=== PATIENT | male | born 1950 | race Caucasian/White ===

== ENCOUNTER 2019-04-25 13:12 | Observation (INO) | payer MEDICARE, OTHER ==
[~2019-04-25] VITALS: Ht 167.6 cm; Wt 88.0 kg
[2019-04-25] MEDS ORDERED: SODIUM CHLORIDE 0.9% 1000ML 1,000 ML IV STA (13:15)
[2019-04-25 13:31] LABS: BASOPHILS # (AUTO) 0.1 (0.0-0.1); BASOPHILS % 0.5 % (0.0-1.0); EOSINOPHILS % 0.3 % (0.0-6.0); HEMATOCRIT 41.7 % (38.2-49.6); HEMOGLOBIN 14.2 g/dL (14.0-18.0); LYMPHOCYTES # (AUTO) 1.9 (1.0-3.2); LYMPHOCYTES % 19.3 % (18.0-39.1); MEAN CORPUSCULAR HEMOGLOBIN 29.8 pg (28-32); MEAN CORPUSCULAR HGB CONC 34.1 g/dL (31-35); MEAN CORPUSCULAR VOLUME 87.6 fL (81-99); MONOCYTES # (AUTO) 0.6 (0.2-0.8); MONOCYTES % 5.5 % (4.4-11.3); NEUTROPHILS # (AUTO) 7.4 (2.1-6.9); NEUTROPHILS % 74.2 % (38.7-80.0); PLATELET COUNT 189 x10e3/uL (140-360); RED BLOOD COUNT 4.76 x10e6/uL (4.3-5.7); RED CELL DISTRIBUTION WIDTH 11.9 % (11.7-14.4)
[2019-04-25 13:55] LABS: ALANINE AMINOTRANSFERASE 23 IU/L (0-55); ALBUMIN/GLOBULIN RATIO 1.1 (0.8-2.0); ALKALINE PHOSPHATASE 79 IU/L (40-150); ANION GAP 13.7 mmol/L (8-16); BLOOD UREA NITROGEN 20 mg/dL (7-26); BUN/CREATININE RATIO 17 (6-25); CARBON DIOXIDE 26 mmol/L (22-29); CHLORIDE 103 mmol/L (98-107); CREATINE KINASE 106 IU/L (30-200); CREATININE, SERUM 1.16 mg/dL (0.72-1.25); EST GLOMERULAR FILTRATION RATE > 60 ML/MIN (60-); GLUCOSE 103 mg/dL (74-118); POTASSIUM 3.7 mmol/L (3.5-5.1); SODIUM 139 mmol/L (136-145)
--- NOTE | 2019-04-25 14:02 | Diagnostic Imaging Report ---
CT BRAIN WO HISTORY: 68-year-old male with altered mental status COMPARISON: None. TECHNIQUE: Noncontrast axial scans were obtained from skull base to the vertex. Coronal and sagittal reconstructions obtained from the axial data. One or more of the following dose reduction techniques were used: Automated exposure control, adjustment of the mA and/or kV according to patient size, and/or utilization of iterative reconstruction technique. DISCUSSION: Scalp/Skull: Unremarkable. Brain sulci: Appropriate for patient's age. Ventricles: Mild asymmetry of ventricular size with larger size of the right lateral ventricle compared to the left. No hydrocephalus. Extra-axial spaces: No masses or fluid collections. Parenchyma: A few punctate hypodense foci in the deep and periventricular white matter consistent with chronic microvascular ischemic changes. No mass, hemorrhage, or large vascular territory acute infarct. Dural sinuses: No abnormal densities. Sellar/Suprasellar region: Intact. Skull base: Intact. Incidental findings: Mild mucosal thickening of the right maxillary sinus. IMPRESSION: 1. No acute intracranial abnormalities. 2. Minimal age appropriate chronic small vessel ischemic changes. This preliminary report was issued by Dr. Miles Banks M.D. neuroradiology fellow at 1401 hours on 04/25/2019. The images and preliminary report provided by the neuroradiology fellow were reviewed and a final report issued by Dr. Estevez neuroradiology faculty on 04/17/2019 at 4:01 PM. Signed by: Dr. Jessica Navarro M.D. on 04/25/2019 4:01 PM
[2019-04-25 14:42] LABS: BILIRUBIN,URINE NEGATIVE (NEGATIVE); CLARITY,URINE SL CLOUDY (CLEAR); COLOR,URINE YELLOW (YELLOW); KETONES,URINE TRACE (NEGATIVE); LEUKOCYTE ESTERASE ,URINE NEGATIVE (NEGATIVE); NITRITE,URINE NEGATIVE (NEGATIVE); PROTEIN,URINE DIPSTICK TRACE (NEGATIVE); URINE UROBILINOGEN 0.2 mg/dL (0.2 - 1)
[2019-04-25 14:49] LABS: BACTERIA,URINE FEW /HPF; EPITHELIAL CELLS,URINE FEW /LPF; RBC,URINE 0-5 /HPF (0-5); WBC,URINE (MAN) 0-5 /HPF (0-5)
--- NOTE | 2019-04-25 15:12 | Diagnostic Imaging Report ---
EXAMINATION: CHEST SINGLE (PORTABLE) INDICATION: Altered mental status, pain COMPARISON: Chest radiograph 10/19/2010 FINDINGS: AP view TUBES and LINES: None. LUNGS: Left basilar hazy airspace opacity.. Lung volumes are adequate. PLEURA: No pleural effusion or pneumothorax. HEART AND MEDIASTINUM: The cardiomediastinal silhouette is unremarkable. Aortic arch calcifications. BONES AND SOFT TISSUES: No acute osseous lesion. Soft tissues are unremarkable. Mild degenerative changes in spine. UPPER ABDOMEN: No free air under the diaphragm. IMPRESSION: Left basilar airspace opacity likely atelectasis. Signed by: Kevin Salter DO on 04/25/2019 3:08 PM
[2019-04-25] MEDS ORDERED: TRAZODONE HCL50 MG PO (15:13)
[2019-04-25] MEDS: MORPHINE SULFATE INJ 4 MG/ML INJ 1ML IV PRN (15:14)
[2019-04-25] MEDS ORDERED: PANTOPRAZOLE SO40 MG PO (15:14)
[2019-04-25] MEDS ORDERED: ROBAXIN-750750 MG PO (15:15)
[2019-04-25] MEDS ORDERED: HYDROCODON-ACE1 EAC9 PO (15:15)
[2019-04-25] MEDS ORDERED: ISOSORBIDE MONO20 MG PO (15:16)
[2019-04-25] MEDS ORDERED: ATORVASTATIN CA20 MG PO (15:16)
[2019-04-25] MEDS ORDERED: DILTIAZEM HCL30 MG PO (15:17)
[2019-04-25] MEDS ORDERED: CYMBALTA20 MG PO (15:17)
[2019-04-25 15:18] LABS: AMPHETAMINES SCREEN,URINE NEGATIVE (NEGATIVE); BENZODIAZEPINES SCREEN,URINE NEGATIVE (NEGATIVE); PHENCYCLIDINE SCREEN,URINE NEGATIVE (NEGATIVE)
[2019-04-25] MEDS ORDERED: BACLOFEN10 MG PO (15:18)
[2019-04-25] MEDS ORDERED: ONDANSETRON HCL INJ 2MG/ML 2ML 2 MG/ML VIAL IV PRN (15:30)
--- OUTSIDE RECORDS SUMMARY | 2019-04-25 15:42 | XMS REPORT ---
Author Author [facility] Address Unknown Phone Unavailable Care Team Providers Care Internal Corrosion Specialist Name Role Phone ТАТЬЯНА ARTURO Unavailable Unavailable Problems This patient has no known problems. Allergies, Adverse Reactions, Alerts This patient has no known allergies or adverse reactions. Medications This patient has no known medications. Results Test Description Test Time Test Comments Text Results Atomic Results Result Comments CHEST SINGLE (PORTABLE) 2019-04-25 15:07:00 [place] [id number] Patient Name: JOVON DUEÑAS MR #: [id number] : 1950 Age/Sex: 68/M Req #: [id number] Adm Physician: Ordered by: ARTURO VAZ DO Report #: [id number] Location: ER Room/Bed: Procedure: [id number] DX/CHEST SINGLE (PORTABLE) Exam Date: 04/25/19 Exam Time: 1345 REPORT STATUS: Signed EXAMINATION: CHEST SINGLE (PORTABLE) INDICAT ION: Altered mental status, pain COMPARISON: Chest radiograph 10/19/2010 FINDINGS: AP view TUBES and LINES: None. LUNGS: Left basilar hazy airspace opacity.. Lung volumes are adequate. PLEURA: No pleural effusion or pneumothorax. HEART AND MEDIASTINUM: The cardiomediastinal silhouette is unremarkable. Aortic arch calcifications. BONES AND SOFT TISSUES: No acute osseous lesion. Soft tissues are unremarkable. Mild degenerative changes in spine. UPPER ABDOMEN: No free air under the diaphragm. IMPRESSION: Left basilar airspace opa city likely atelectasis. Signed by: Kevin Salter DO on 04/25/2019 3:08 PM Dictated By: KEVIN SALTER DO 1508 Transcribed By: VIELKA on 04/25/19 1508 COPY TO: ARTURO VAZ DO
[2019-04-25] MEDS: SODIUM CHLORIDE 0.9% 1000ML 1,000 ML IV SCH ×2 (19:30→23:26)
[2019-04-25 20:00] VITALS: BP 180/95
--- NOTE | 2019-04-25 20:51 | NUR ---
CALLED AND LEFT VOICEMAIL TO DR SILVA FOR CONSULT OF AMS.
[2019-04-25 21:00] VITALS: BP 180/95
[2019-04-25] MEDS ORDERED: ACETAMINOPHEN 325 MG TAB PO PRN (21:30)
--- NOTE | 2019-04-25 21:40 | NUR ---
NOTIFIED DR COVARRUBIAS ABOUT HIGH BLOOD PRESSURE. NEW ORDER RECEIVED.
[2019-04-25] MEDS: DILTIAZEM HCL 30 MG TAB PO SCH (22:11)
[2019-04-26] VITALS (12 sets, daily range): BP systolic 121–209; BP diastolic 63–100
[2019-04-26] MEDS: MORPHINE SULFATE INJ 4 MG/ML INJ 1ML IV PRN ×5 (07:15→23:04)
[2019-04-26] MEDS: DILTIAZEM HCL 30 MG TAB PO SCH (07:15)
--- NOTE | 2019-04-26 11:15 | NUR ---
BP 200/90. C/o right hip pain 10/10. PRN morphine given. Will continue to monitor.
--- NOTE | 2019-04-26 11:28 | NUR ---
Paged to notify of BP 192/82. Awaiting for call back
--- NOTE | 2019-04-26 12:31 | NUR ---
aware of BP 178/85. States "I will look at the chart"
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
[2019-04-26] MEDS ORDERED: BACLOFEN 10 MG TAB PO PRN (12:45)
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
[2019-04-26] MEDS: ISOSORBIDE MONONITRATE 30 MG TAB CR PO SCH (13:16)
[2019-04-26] MEDS: NIFEDIPINE CR 30 MG TAB PO SCH ×2 (13:30→21:10)
[2019-04-26] MEDS ORDERED: HYDRALAZINE HCL 20 MG/ML VIAL IV STA (13:56)
[2019-04-26] MEDS ORDERED: HYDRALAZINE HCL 20 MG/ML VIAL IV SCH (14:00)
--- NOTE | 2019-04-26 14:00 | NUR ---
Notified of patient's BP. See orders
[2019-04-26 14:36] LABS: CHOL/HDL RATIO 4.9 (3.9-4.7)
[2019-04-26] MEDS ORDERED: HYDRALAZINE HCL 20 MG/ML VIAL IV PRN (14:45)
[2019-04-26] MEDS ORDERED: METHOCARBAMOL 750 MG TAB PO SCH (15:00)
[2019-04-26] MEDS: PANTOPRAZOLE SOD 40 MG TABEC PO SCH (16:32)
[2019-04-26] MEDS: METHOCARBAMOL 500 MG TAB PO SCH ×2 (17:05→21:10)
--- NOTE | 2019-04-26 18:55 | NUR ---
Report given to oncoming nurse of patient's status. Resting in bed, side rails upx2, call light within reach. No s/s of acute distress noted.
[2019-04-26] MEDS ORDERED: TRAZODONE HCL 50 MG TAB PO SCH (21:00)
[2019-04-26] MEDS ORDERED: ATORVASTATIN 40 MG TAB PO SCH (21:00)
[2019-04-26] MEDS ORDERED: ATORVASTATIN 20 MG TAB PO SCH (21:00)
[2019-04-26] MEDS: SALINE 0.65% NAS SOLN 1 SPRAY BTL SCH (21:09)
[2019-04-27] VITALS: BP 135/68
[2019-04-27 04:00] VITALS: BP 112/58
[2019-04-27] MEDS: MORPHINE SULFATE INJ 4 MG/ML INJ 1ML IV PRN ×2 (04:00→09:46)
--- NOTE | 2019-04-27 07:09 | NUR ---
Received bedside report from night nurse. Patient resting in bed, no signs of distress at this time. All safety measures in place. Will continue to monitor.
[2019-04-27] MEDS ORDERED: NIFEDIPINE ER30 M1 PO (07:21)
[2019-04-27] MEDS ORDERED: CARDIZEM30 MG PO (07:21)
--- NOTE | 2019-04-27 07:22 | NUR ---
D/C summary Principal Dx: Hypertensive encephalopathy 'BHAVANI/AMS Secondary Dx: GERD HTN HLD PLAN COntrol BP; UA negative; CT brain negative restart home meds adjust meds SCD DIspo d/c home f/u 1 week stable d/c>35mins Aron Emerson MD, PhD.
[2019-04-27 08:00] VITALS: BP 113/61
[2019-04-27] MEDS: METHOCARBAMOL 500 MG TAB PO SCH (08:59)
[2019-04-27] MEDS: NIFEDIPINE CR 30 MG TAB PO SCH (08:59)
[2019-04-27] MEDS: ISOSORBIDE MONONITRATE 30 MG TAB CR PO SCH (08:59)
[2019-04-27] MEDS: PANTOPRAZOLE SOD 40 MG TABEC PO SCH (08:59)
[2019-04-27] MEDS ORDERED: ISOSORBIDE MONONITRATE 20 MG TAB PO SCH (09:00)
[2019-04-27] MEDS ORDERED: DILTIAZEM HCL 30 MG TAB PO SCH (09:00)
[2019-04-27 09:45] VITALS: BP 113/61
[2019-04-27] MEDS: SALINE 0.65% NAS SOLN 1 SPRAY BTL SCH (09:49)
[2019-04-27] MEDS ORDERED: ONDANSETRON HCL 4 MG ORAL DISINTEGRATING TAB PO PRN (11:00)
[2019-04-27 12:00] VITALS: BP 85/55
== END 2019-04-27 11:30 | disposition home or self-care (01) ==
LOC: ER 13:12 → ERHOLD 15:26 → MED/SURG2 18:32
PROVIDERS: ADMIT Internal Medicine; ATTEND Internal Medicine
DX: I67.4 Hypertensive encephalopathy (principal); T42.8X1A Poisoning by antiparkinsonism drugs and other central muscle-tone depressants, accidental (unintentional), initial encounter; T40.2X1A Poisoning by other opioids, accidental (unintentional), initial encounter; G92 Toxic encephalopathy; S76.911A Strain of unspecified muscles, fascia and tendons at thigh level, right thigh, initial encounter; Z88.0 Allergy status to penicillin; R47.1 Dysarthria and anarthria; Y92.019 Unspecified place in single-family (private) house as the place of occurrence of the external cause; G89.4 Chronic pain syndrome; K21.9 Gastro-esophageal reflux disease without esophagitis; I10 Essential (primary) hypertension; E78.5 Hyperlipidemia, unspecified; I25.10 Atherosclerotic heart disease of native coronary artery without angina pectoris; Z95.5 Presence of coronary angioplasty implant and graft
CPT/HCPCS: 36415 ×2; 70450; 71045; 80053; 80061; 80307; 80320; 81001; 82550; 82553; 82948; 83036; 83880; 84484; 85025; 93005; 99284; G0378 ×3; J0360; J2270 ×3; J2405; J7030; S0164 ×2

== ENCOUNTER 2019-05-02 11:31 | Emergency (ER) | payer OTHER ==
[~2019-05-02] VITALS: Ht 167.6 cm; Wt 88.0 kg
[~2019-05-02 11:31] MED LIST: ATORVASTATIN CA20 MG PO; BACLOFEN10 MG PO; CARDIZEM30 MG PO; CYMBALTA20 MG PO; DILTIAZEM HCL30 MG PO; HYDROCODON-ACE1 EAC9 PO; ISOSORBIDE MONO20 MG PO; NIFEDIPINE ER30 M1 PO; PANTOPRAZOLE SO40 MG PO; ROBAXIN-750750 MG PO; TRAZODONE HCL50 MG PO
--- NOTE | 2019-05-02 12:04 | NUR ---
BLADDER SCAN DONE, 32ML URINE NOTED IN BLADDER
[2019-05-02 12:12] LABS: BASOPHILS # (AUTO) 0.1 (0.0-0.1); BASOPHILS % 0.9 % (0.0-1.0); EOSINOPHILS # (AUTO) 0.1 (0.0-0.4); EOSINOPHILS % 0.8 % (0.0-6.0); HEMATOCRIT 45.7 % (38.2-49.6); HEMOGLOBIN 15.8 g/dL (14.0-18.0); LYMPHOCYTES % 19.8 % (18.0-39.1); MEAN CORPUSCULAR HEMOGLOBIN 29.4 pg (28-32); MEAN CORPUSCULAR HGB CONC 34.6 g/dL (31-35); MEAN CORPUSCULAR VOLUME 85.1 fL (81-99); MONOCYTES # (AUTO) 0.6 (0.2-0.8); MONOCYTES % 6.3 % (4.4-11.3); NEUTROPHILS # (AUTO) 7.1 (2.1-6.9); PLATELET COUNT 231 x10e3/uL (140-360); RED BLOOD COUNT 5.37 x10e6/uL (4.3-5.7); RED CELL DISTRIBUTION WIDTH 11.7 % (11.7-14.4)
[2019-05-02 12:16] LABS: INR 0.88; PROTHROMBIN TIME 12.4 seconds (11.9-14.5)
[2019-05-02 12:17] LABS: PARTIAL THROMBOPLASTIN TIME 30.1 seconds (23.8-35.5)
[2019-05-02 12:25] LABS: ALBUMIN 4.3 g/dL (3.5-5.0); ALBUMIN/GLOBULIN RATIO 1.1 (0.8-2.0); ANION GAP 16.5 mmol/L (8-16); CALCIUM 10.7 mg/dL (8.4-10.2); CREATININE, SERUM 1.29 mg/dL (0.72-1.25); POTASSIUM 3.5 mmol/L (3.5-5.1)
[2019-05-02] MEDS ORDERED: ASPIRIN 81 MG CHEW TAB PO ONE (12:30)
--- NOTE | 2019-05-02 12:37 | Diagnostic Imaging Report ---
EXAMINATION: CHEST SINGLE (PORTABLE) INDICATION: ^ERMD ORDER ^[id number] ^1215 ^Y COMPARISON: Chest radiograph 04/25/2019 FINDINGS: AP view TUBES and LINES: None. LUNGS: Lungs are well inflated. Mild bilateral central pulmonary vascular congestion. No new consolidations. PLEURA: No pleural effusion or pneumothorax. HEART AND MEDIASTINUM: The cardiomediastinal silhouette is unremarkable.. BONES AND SOFT TISSUES: No acute osseous lesion. Soft tissues are unremarkable. UPPER ABDOMEN: No free air under the diaphragm. IMPRESSION: Mild central pulmonary vascular congestion. Signed by: Dr. Becca Bazan M.D. on 05/02/2019 12:34 PM
[2019-05-02] MEDS ORDERED: SODIUM CHLORIDE 0.9% 500ML 500 ML ONE (12:39)
[2019-05-02 12:45] LABS: CREATINE KINASE MB 1.9 ng/mL (0-5.0); THYROID STIMULATING HORMONE 1.613 uIU/mL (0.350-4.940)
[2019-05-02] MEDS ORDERED: SODIUM CHLORIDE 0.9% 500ML 500 ML IV STA (12:46)
--- NOTE | 2019-05-02 13:11 | Diagnostic Imaging Report ---
History:Confusion last night Comparison studies:CT head 04/25/2019 Technique: Axial images were obtained from the skull base to the vertex. Coronal and sagittal images reconstructed from the axial data. Intravenous contrast: None Dose modulation, iterative reconstruction, and/or weight based adjustment of the mA/kV was utilized to reduce the radiation dose to as low as reasonably achievable. Findings: Scalp/skull: No abnormalities. Extra-axial spaces: No masses. No fluid collections. Brain sulci: Age-appropriate. Ventricles: Asymmetric prominence of the right lateral ventricle. No hydrocephalus. Parenchyma: Subtle hypodensities in the supratentorial white matter are small vessel ischemic changes. No masses, hemorrhage, acute or chronic cortical vascular insults. Sellar/suprasellar region: No abnormalities. Craniocervical junction: Patent foramen magnum. No Chiari one malformation. Incidental findings: Atherosclerotic calcifications in the carotid siphons . Impression: No acute abnormalities. Stable exam. Chronic findings. 1. Mild supratentorial white matter small vessel ischemic changes. Signed by: DR Kranthi Feng M.D. on 05/02/2019 1:08 PM
[2019-05-02] MEDS ORDERED: ONDANSETRON HCL INJ 2MG/ML 2ML 2 MG/ML VIAL IV STA (13:32)
[2019-05-02] MEDS ORDERED: MORPHINE SULFATE INJ 4 MG/ML INJ 1ML IV STA (13:32)
[2019-05-02] MEDS ORDERED: MORPHINE SULFATE 2 MG/ML SYR 1ML ONE (13:44)
[2019-05-02 13:50] LABS: BILIRUBIN,URINE NEGATIVE (NEGATIVE); CLARITY,URINE CLEAR (CLEAR); COLOR,URINE YELLOW (YELLOW); KETONES,URINE NEGATIVE (NEGATIVE); LEUKOCYTE ESTERASE ,URINE NEGATIVE (NEGATIVE); NITRITE,URINE NEGATIVE (NEGATIVE); PROTEIN,URINE DIPSTICK TRACE (NEGATIVE); URINE UROBILINOGEN 0.2 mg/dL (0.2 - 1)
[2019-05-02] MEDS ORDERED: MORPHINE SULFATE INJ 4 MG/ML INJ 1ML IV NR (14:00)
[2019-05-02 14:04] LABS: AMPHETAMINES SCREEN,URINE NEGATIVE (NEGATIVE); PHENCYCLIDINE SCREEN,URINE NEGATIVE (NEGATIVE)
[2019-05-02 14:05] LABS: BENZODIAZEPINES SCREEN,URINE NEGATIVE (NEGATIVE)
[2019-05-02 14:06] LABS: RBC,URINE 0-5 /HPF (0-5); WBC,URINE (MAN) 0-5 /HPF (0-5)
[2019-05-02] MEDS ORDERED: NIFEDIPINE CR 30 MG TAB ONE (15:50)
[2019-05-02] MEDS ORDERED: HYDRALAZINE HCL 20 MG/ML VIAL IV NR (16:00)
[2019-05-02 16:52] VITALS: BP 178/66
== END 2019-05-02 16:54 | disposition home or self-care (01) ==
LOC: ER 11:35
DX: M54.41 Lumbago with sciatica, right side (principal); R06.02 Shortness of breath; I10 Essential (primary) hypertension; Z95.5 Presence of coronary angioplasty implant and graft
CPT/HCPCS: 36415; 70450; 71045; 80053; 80307; 80329; 81001; 82140; 82550; 82553; 83880; 84443; 84484; 85025; 85610; 85730; 87086; 93005; 99284; J0360; J2270; J2405; J7040